=== PATIENT | male | born 1940 | race Two or more races ===

== ENCOUNTER 2018-08-15 16:05 | Emergency (ER) | payer SELFPAY ==
[~2018-08-15] VITALS: Ht 175.3 cm; Wt 73.0 kg
[2018-08-15] MEDS ORDERED: BACITRACIN ZINC OINT UDPKT TOP ONE (18:45)
[2018-08-15] MEDS ORDERED: TETANUS, DIPHTHERIA, PERTUSSIS VAC/PF 0.5ML (>7YR OLD) IM ONE (18:45)
[2018-08-16 01:44] VITALS: BP 155/79
== END 2018-08-16 01:58 ==
LOC: ER 16:05
DX: S60.413A Abrasion of left middle finger, initial encounter (principal); I10 Essential (primary) hypertension; F03.90 Unspecified dementia, unspecified severity, without behavioral disturbance, psychotic disturbance, mood disturbance, and anxiety; W18.39XA Other fall on same level, initial encounter; Y93.89 Activity, other specified; Y92.89 Other specified places as the place of occurrence of the external cause; Y99.8 Other external cause status
CPT/HCPCS: 73140; 99283